=== PATIENT | female | born 1970 | race American Indian/Alaskan Native ===

== ENCOUNTER 2018-05-03 10:46 | Emergency (ER) | payer SELFPAY ==
[2018-05-03 10:58] VITALS: BP 145/75
[2018-05-03] MEDS ORDERED: NORCO 5/325 PO ONE (14:09)
--- NOTE | 2018-05-03 14:17 | Emergency Department Report ---
ED Extremity Problem HPI - General Chief complaint: Extremity Injury, Lower Stated complaint: BAD LEG PAIN NAUSEA Time Seen by Provider: 05/03/18 13:36 Source: patient Mode of arrival: Ambulatory Limitations: No Limitations - History of Present Illness Initial comments: 48-year-old female presents to the hospital complaining of bilateral leg pain 3 weeks that is progressively worsening. Patient saw PMD yesterday and was told that it was due to varicose veins. Patient complains of constant pain to bilateral latest described as feeling like she got hit by a rock. She's had intermittent sharp pain shooting down both legs. She denies fever, rash, recent travel or unilateral leg edema. She was prescribed ibuprofen by her doctor states this is not helping with her pain. Patient has a history of diabetes, neuropathy, fibromyalgia, CHF and other medical conditions as per triage. She states she used to be on Lyrica 150 twice a day but has been unable to afford it due to lack of insurance. - Related Data Home Medications Medication Instructions Recorded Confirmed Last Taken Lasix 05/03/18 Unknown Loratadine 05/03/18 Unknown Losartan 05/03/18 Unknown Robaxin 05/03/18 Unknown metFORMIN 05/03/18 Unknown Previous Rx's Medication Instructions Recorded Last Taken Type Cyclobenzaprine HCl [Flexeril 5 MG 5 mg PO TID PRN #30 tab 05/03/18 Unknown Rx TAB] Gabapentin [Neurontin] 300 mg PO Q8HR #90 capsule 05/03/18 Unknown Rx HYDROcodone/ACETAMINOPHEN [Wingina 1 each PO Q6HR PRN #20 tablet 05/03/18 Unknown Rx 5-325 Tablet] Allergies Allergy/AdvReac Type Severity Reaction Status Date / Time amitriptyline Allergy Unknown Verified 01/14/15 23:28 lisinopril Allergy Swelling Verified 01/14/15 23:28 morphine Allergy Itching Verified 01/14/15 23:28 tramadol Allergy Itching Verified 01/14/15 23:28 ED Review of Systems ROS: Stated complaint: BAD LEG PAIN NAUSEA Other details as noted in HPI Comment: All other systems reviewed and negative ED Past Medical Hx - Past Medical History Hx Hypertension: Yes Hx Congestive Heart Failure: Yes Hx Diabetes: Yes Hx GERD: Yes Hx Arthritis: Yes Hx Asthma: Yes Additional medical history: neuropathy, sleep apnea - Surgical History Hx Cholecystectomy: Yes Additional Surgical History: , tonsillectomy - Social History Smoking Status: Never Smoker Substance Use Type: None - Medications Home Medications: Home Medications Medication Instructions Recorded Confirmed Last Taken Type Cyclobenzaprine HCl [Flexeril 5 MG 5 mg PO TID PRN #30 tab 05/03/18 Unknown Rx TAB] Gabapentin [Neurontin] 300 mg PO Q8HR #90 capsule 05/03/18 Unknown Rx HYDROcodone/ACETAMINOPHEN [Wingina 1 each PO Q6HR PRN #20 tablet 05/03/18 Unknown Rx 5-325 Tablet] Lasix 05/03/18 Unknown History Loratadine 05/03/18 Unknown History Losartan 05/03/18 Unknown History Robaxin 05/03/18 Unknown History metFORMIN 05/03/18 Unknown History ED Physical Exam - General Limitations: No Limitations - Other Other exam information: General: No limitations, patient is alert in no acute distress Head exam: Atraumatic, normocephalic Eyes exam: Normal appearance ENT: Moist mucous membrane, normal oropharynx Neck exam: Normal inspection, full range of motion, no meningismus nontender Respiratory exam: Clear to auscultation bilateral, no wheezes, rales, crackles Cardiovascular: Normal rate and rhythm, normal heart sounds Abdomen: Soft, nondistended, and nontender, with normal bowel sounds, no rebound, or guarding Extremity: Generalized tenderness to palpation. 2+ DP pulses equal bilaterally. Minimal ankle edema. No warmth or erythema Back: Normal Inspection, full range of motion, no tenderness Neurologic: Alert, oriented x3, cranial nerves intact, no motor or sensory deficit Psychiatric: normal affect, normal mood Skin: Warm, dry, intact ED Course Vital Signs 05/03/18 05/03/18 10:53 14:20 Temperature 98.2 F Pulse Rate 68 Respiratory 20 18 Rate Blood Pressure 145/75 O2 Sat by Pulse 99 Oximetry - Reevaluation(s) Reevaluation #1: 05/03/18 14:15 Patient has multiple allergies including to morphine and tramadol but states she has tolerated Lortab past. She be given Wingina and observed for allergic reaction. Patient is frustrated because I will not do x-rays of her legs. I explained that x-rays only show broken bones and therefore they are not indicated at this time she does not have trauma or deformity. I will however be agreeable to avoiding basic laboratory showed a electrolytes are okay however I do feel like this is acutely necessary as well. Patient has good pulses malaise without any signs of unilateral significant bilateral edema. ED Medical Decision Making - Lab Data Result diagrams: 05/03/18 14:20 05/03/18 14:20 Lab Results 05/03/18 05/03/18 05/03/18 Range/Units 14:20 14:20 14:28 WBC 8.6 (4.5-11.0) K/mm3 RBC 4.75 (3.65-5.03) M/mm3 Hgb 11.8 (10.1-14.3) gm/dl Hct 36.6 (30.3-42.9) % MCV 77 L (79-97) fl MCH 25 L (28-32) pg MCHC 32 (30-34) % RDW 15.3 H (13.2-15.2) % Plt Count 279 (140-440) K/mm3 Lymph % (Auto) 44.4 H (13.4-35.0) % [place] % (Auto) 5.7 (0.0-7.3) % Eos % (Auto) 5.0 H (0.0-4.3) % Baso % (Auto) 0.3 (0.0-1.8) % Lymph # 3.8 (1.2-5.4) K/mm3 [place] # 0.5 (0.0-0.8) K/mm3 Eos # 0.4 (0.0-0.4) K/mm3 Baso # 0.0 (0.0-0.1) K/mm3 Seg Neutrophils % 44.6 (40.0-70.0) % Seg Neutrophils # 3.8 (1.8-7.7) K/mm3 Sodium 144 (137-145) mmol/L Potassium 4.1 (3.6-5.0) mmol/L Chloride 105.2 (98-107) mmol/L Carbon Dioxide 29 (22-30) mmol/L Anion Gap 14 mmol/L BUN 7 (7-17) mg/dL Creatinine 0.5 L (0.7-1.2) mg/dL Estimated GFR > 60 ml/min BUN/Creatinine Ratio 14 % Glucose 104 H (65-100) mg/dL Calcium 9.7 (8.4-10.2) mg/dL Magnesium 1.70 (1.7-2.3) mg/dL Total Bilirubin 0.30 (0.1-1.2) mg/dL AST 8 (5-40) units/L ALT 7 (7-56) units/L Alkaline Phosphatase 83 (35-129) units/L Total Creatine Kinase 67 (30-135) units/L Total Protein 6.9 (6.3-8.2) g/dL Albumin 4.3 (3.9-5) g/dL Albumin/Globulin Ratio 1.7 % - Medical Decision Making On further questioning it appears the patient is a history of fibromyalgia and neuropathy has been unable to for her previous medications which include Lyrica , and Flexeril. She is allergic to amitriptyline. Positive improvement in pain with Wingina. Labs do not reveal any acute abnormality. Patient's downloaded good Rx at and was instructed on how to use it to show the lowest prices in her area. She will be prescribed Flexeril, gabapentin, and Wingina since these are affordable medication to see if they improve her symptoms. Follow-up will be encouraged. Vascular referral is to be provided due to concerns of Varicose Veins. Patient Has Good Blood Flow As Indicated by DP Pulses to Distal Extremity Patient warranted that combination of Flexeril and gabapentin may decrease seizure threshold. Patient planned to take the Flexeril only as needed. I only prescribed Flexeril 5 mg given the possible additive sedative effects of Flexeril, gabapentin, and Wingina. - Differential Diagnosis neuropathy, myalgias, electrolyte abnormality, rhabdomyolysis Critical Care Time: No Critical care attestation.: If time is entered above; I have spent that time in minutes in the direct care of this critically ill patient, excluding procedure time. ED Disposition Clinical Impression: Neuropathic pain, Fibromyalgia Disposition: DC-01 TO HOME OR SELFCARE Is pt being admited?: No Does the pt Need Aspirin: No Condition: Stable Instructions: Diabetic Neuropathy (ED), Fibromyalgia (ED) Additional Instructions: Take the medication as prescribed. Follow up with your doctors and a vascular surgeon. Return if symptoms worsen as indicated by your discharge instructions Prescriptions: Cyclobenzaprine HCl [Flexeril 5 MG TAB] 5 mg PO TID PRN #30 tab PRN Reason: Muscle Spasm Gabapentin [Neurontin] 300 mg PO Q8HR #90 capsule HYDROcodone/ACETAMINOPHEN [Wingina 5-325 Tablet] 1 each PO Q6HR PRN #20 tablet PRN Reason: Pain , Severe (7-10) Referrals: PRIMARY CARE, [Primary Care Provider] - 3-5 Days FRANCISCA GOMEZ MD [Staff Physician] - 3-5 Days (vascular doctor) Time of Disposition: 15:45
[2018-05-03 14:44] LABS: Basophils % (Auto) 0.3 % (0.0-1.8); Eosinophils # (Auto) 0.4 K/mm3 (0.0-0.4); Hematocrit 36.6 % (30.3-42.9); Hemoglobin 11.8 gm/dl (10.1-14.3); Lymphocytes # (Auto) 3.8 K/mm3 (1.2-5.4); Lymphocytes % (Auto) 44.4 % (13.4-35.0); Mean Corpuscular HGB Conc 32 % (30-34); Mean Corpuscular Volume 77 fl (79-97); Monocytes # (Auto) 0.5 K/mm3 (0.0-0.8); Monocytes % (Auto) 5.7 % (0.0-7.3); Platelet Count 279 K/mm3 (140-440); Red Blood Count 4.75 M/mm3 (3.65-5.03); Red Cell Distribution Width 15.3 % (13.2-15.2)
[2018-05-03 14:46] LABS: Mean Corpuscular Hemoglobin 25 pg (28-32)
[2018-05-03 15:03] LABS: Alanine Aminotransferase 7 units/L (7-56); Albumin 4.3 g/dL (3.9-5); BUN/Creatinine Ratio 14; Blood Urea Nitrogen 7 mg/dL (7-17); Calcium 9.7 mg/dL (8.4-10.2); Hemolysis Index 6
== END 2018-05-03 16:07 | disposition home or self-care (01) ==
LOC: ED 10:46
DX: M79.7 Fibromyalgia (principal); M79.2 Neuralgia and neuritis, unspecified; I11.0 Hypertensive heart disease with heart failure; I50.9 Heart failure, unspecified; E11.9 Type 2 diabetes mellitus without complications; K21.9 Gastro-esophageal reflux disease without esophagitis; M19.90 Unspecified osteoarthritis, unspecified site; J45.909 Unspecified asthma, uncomplicated; Z90.49 Acquired absence of other specified parts of digestive tract; Z90.89 Acquired absence of other organs; Z88.8 Allergy status to other drugs, medicaments and biological substances; Z88.6 Allergy status to analgesic agent; Z79.84 Long term (current) use of oral hypoglycemic drugs
CPT/HCPCS: 36415; 80053; 82550; 83735; 85025; 99283